=== PATIENT | female | born 1955 | race Caucasian/White ===

== ENCOUNTER 2016-08-24 20:26 | Emergency (ER) | payer MEDICARE, OTHER ==
--- NOTE | ~2016-08-24 | CR63 ---
[facility] A Service of [facility] RADIOLOGY TEXT RESULTS PATIENT: LEE LOPEZ LOCATION: SED : 55 UNIT #: [id number] AGE: [address]: Eula Rebollar APRN SEX: F ORDER DR: [id number] [address] [address] [id number] MR#: [id number] Acc #: [id number] NAME: LEE LOPEZ. : 1955 SEX: F STUDY DATE/TIME: 08/24/2016 20:10 UNIT: SED ROOM: STUDY DESCRIPTION: CR Chest 2 View Attending Physician: Eula Rebollar A.P.R.N. Ordering Physician: Eula Francis A.P.R.N. Primary Care Physician: Dipika Christensen M.D. MEDICAL IMAGING REPORT This report is preliminary unless electronic signature is present. EXAM Two-view chest 08/24/2016 INDICATIONS 61-year-old female with cough and congestion and sore throat for a week, asthma, COPD. TECHNIQUE Two-view chest compared with 05/10/2013. FINDINGS Cardiac silhouette is within normal limits. The vascularity is normal. Lung volumes are low but the lungs are clear and there is no pneumothorax. IMPRESSION 1. Low-volume image, otherwise negative two-view chest. Dictated by... Balbir Palmer M.D. THIS IS AN ELECTRONICALLY VERIFIED REPORT Blabir Palmer M.D. at 08/25/2016 10:35 AM Prem TD: 08/24/2016 22:57 JOB #: [id number] MEDICAL IMAGING REPORT Page 1 of 1
[~2016-08-24 20:26] MED LIST: ADVAIR 1001 DISK W/D PO; ADVAIR 250-501 EACH IH; ADVAIR 250-501 EACH INH; ALBUTEROL17 GM INH; ATARAX PO; BACTRIM DS TABL1 TA1 PO; COMBIVENT MININEB INH; DUONEB 2.5-0.5 M3 ML NEB; HCTZ PO; IBUPROFEN100 M1; IBUPROFEN800 MG PO; LEVAQUIN PO; LOW ESTROGEN PO; MOTRIN; NORVASC PO; OXYGEN 2LPM; PHENERGAN VC W120 M1 PO; PREDNISONE PO; PREMARIN PO; PRILOSEC PO; TESSALON200 MG PO; THEOPHYLLIN PO; THORAZINE25 MG PO; ZITHROMAX PO; ZITHROMAX1 G/PKT PO
== END 2016-08-24 21:08 | disposition home or self-care (01) ==
LOC: SED 20:26
DX: R05 Cough (principal); J44.9 Chronic obstructive pulmonary disease, unspecified; J45.909 Unspecified asthma, uncomplicated; Z79.899 Other long term (current) drug therapy; Z88.0 Allergy status to penicillin; Z88.8 Allergy status to other drugs, medicaments and biological substances
CPT/HCPCS: 71020; 99283

== ENCOUNTER 2016-10-09 21:27 | Emergency (ER) | payer MEDICARE, OTHER ==
[2016-10-09] MEDS ORDERED: PRILOSEC (21:50)
== END 2016-10-09 22:40 | disposition home or self-care (01) ==
LOC: SED 21:27
DX: J06.9 Acute upper respiratory infection, unspecified (principal); J45.909 Unspecified asthma, uncomplicated; I10 Essential (primary) hypertension; Z90.710 Acquired absence of both cervix and uterus; Z88.0 Allergy status to penicillin; Z88.8 Allergy status to other drugs, medicaments and biological substances
CPT/HCPCS: 87651; 99283